=== PATIENT | male | born 1980 | race African-American/Black ===

== ENCOUNTER 2018-11-20 10:54 | Emergency (ER) | payer SELFPAY ==
[~2018-11-20] VITALS: Ht 175.3 cm; Wt 68.0 kg
[2018-11-20] MEDS ORDERED: KETOROLAC 30MG/ML VIAL IV STA (12:58)
[2018-11-20] MEDS ORDERED: SODIUM CHLORIDE 0.9% 1,000 ML IV ONE (12:58)
[2018-11-20 13:44] LABS: BASOPHILS % 0.6 % (0.0-2.0); EOSINOPHILS % 0.8 % (0.0-5.0); HEMATOCRIT. 41.7 % (42.0-52.0); HEMOGLOBIN. 14.7 g/dL (14.0-18.0); LYMPHOCYTES % 10.9 % (20.0-50.0); MEAN CORPUSCULAR HEMOGLOBIN 27.5 pg (28.0-32.0); MEAN CORPUSCULAR VOLUME 78.1 fL (80.0-94.0); MEAN PLATELET VOLUME 7.4 fl (7.4-10.4); MONOCYTES % 7.3 % (2.0-8.0); NEUTROPHILS % 80.4 % (40.0-76.0); PLATELET 256 x1000/uL (130-400); RED BLOOD CELL COUNT 5.34 mill/uL (4.7-6.1); RED CELL DISTRIBUTION WIDTH 13.7 % (11.6-14.6)
[2018-11-20 13:50] LABS: CHLORIDE 106 mEq/L (98-107)
[2018-11-20] MEDS ORDERED: DEXAMETHASONE 10 MG/ML VIAL IV ONE (15:15)
[2018-11-20 17:38] VITALS: BP 126/78
== END 2018-11-20 17:36 | disposition home or self-care (01) ==
LOC: ER 13:57
DX: J02.9 Acute pharyngitis, unspecified (principal); L29.0 Pruritus ani; R03.0 Elevated blood-pressure reading, without diagnosis of hypertension
CPT/HCPCS: 36415; 80053; 83690; 85025; 87070; 87430; 96374; 96375; 99283; J1100; J1885; J7030